=== PATIENT | female | born 1975 | race Caucasian/White ===

== ENCOUNTER → 2021-03-09 | Outpatient (CLI) | payer OTHER ==
--- NOTE | 2021-03-09 15:34 | RAD ---
EXAM: Thyroid sonogram. HISTORY: Thyroid nodule. TECHNIQUE: Sonographic imaging of the thyroid was performed. COMPARISON: None. FINDINGS: The right thyroid lobe measures 4.4 x 1.2 x 1.2 cm. The left thyroid lobe measures 5.4 x 2. 6 x 2.4 cm. The thyroid isthmus measures 4 mm. There is increased thyroid parenchymal blood flow. The re is diffusely heterogeneous thyroid parenchyma. There is a dominant solid circumscribed hypervascular hypoechoic mass within the inferior left thyroi d lobe measuring 3.1 x 2.9 x 2.3 cm. There is a small adjacent circumscribed hypoechoic isoechoic nod ule along the left aspect of the thyroid isthmus measuring 9 x 8 x 6 mm. There is also a solid hypoec hoic to isoechoic nodule along the right aspect of the thyroid isthmus measuring 9 x 8 x 5 mm. There is a colloid cyst within the right thyroid lobe measuring 7 mm. IMPRESSION: 1. 3.1 cm dominant nodule within the left thyroid lobe. TI-RADS Category 4: Fine-needle aspiration is recommended. 2. 9 mm nodules within the right and left aspect of the thyroid isthmus. TI-RADS Category 4: Sonograp hic follow up is recommended. Electronically signed by: Torri Pruitt MD (03/09/2021 3:32 PM) [id number]
== END ==
LOC: US 14:42
PROVIDERS: ATTEND Family Medicine
DX: E04.2 Nontoxic multinodular goiter (principal)
CPT/HCPCS: 76536

== ENCOUNTER → 2021-09-06 | Outpatient (CLI) | payer OTHER ==
--- NOTE | 2021-09-06 15:26 | RAD ---
EXAM: Pelvic sonogram. HISTORY: Excessive bleeding. TECHNIQUE: Transabdominal and transvaginal sonographic imaging of the pelvis was performed. COMPARISON: None. FINDINGS: The uterus measures 6.7 x 4.5 x 3.3 cm. The endometrial stripe measures 8 mm in thickness. The uterine parenchyma is diffusely heterogeneous. The junctional zone is indistinct. There is a supe rimposed heterogeneous solid-appearing lesion within the uterine fundus measuring 2.1 cm in maximum d imension. There is a smaller more hypoechoic lesion within the lower uterine segment measuring 1.3 cm in maximum dimension. The ovaries are normal in size. There is a nabothian cyst within the cervix me asuring 10 mm. There is no pelvic free fluid. IMPRESSION: 1. Suspected uterine fibroids measuring 2.1 cm and 1.3 cm. 2. Diffusely heterogeneous uterine parenchyma with indistinct junctional zone. This can be seen with adenomyosis. 3. Unremarkable ovaries. 4. Normal endometrial stripe thickness. Electronically signed by: Torri Pruitt MD (09/06/2021 3:23 PM) [id number]
== END ==
LOC: US 13:51
PROVIDERS: ATTEND Family Medicine
DX: N80.0 Endometriosis of uterus (principal); N88.8 Other specified noninflammatory disorders of cervix uteri; N92.4 Excessive bleeding in the premenopausal period
CPT/HCPCS: 76830; 76856